=== PATIENT | female | born 1995 | race Caucasian/White ===

== ENCOUNTER 2018-05-27 20:47 | Emergency (ER) | payer SELFPAY ==
[~2018-05-27] VITALS: Ht 167.6 cm; Wt 52.2 kg
[2018-05-27] MEDS ORDERED: NKM (21:01)
[2018-05-27 21:21] VITALS: BP 129/77
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
[2018-05-27] MEDS ORDERED: IBUPROFEN600 MG ORAL (21:29)
[2018-05-27 21:50] VITALS: BP 129/77
--- NOTE | 2018-05-28 11:26 | Diagnostic Imaging Report ---
Indication: Neck Pain Findings: 3 views of the cervical spine were obtained. There is no acute fracture identified. Alignment is normal. The open-mouth odontoid view shows an intact dens and good alignment of the lateral masses with respect to the body of C2. There is no soft tissue swelling. Impression: Negative cervical spine examination.
== END 2018-05-27 21:50 | disposition home or self-care (01) ==
LOC: EMR 21:44
DX: S16.1XXA Strain of muscle, fascia and tendon at neck level, initial encounter (principal); S50.311A Abrasion of right elbow, initial encounter; V43.62XA Car passenger injured in collision with other type car in traffic accident, initial encounter; Y92.410 Unspecified street and highway as the place of occurrence of the external cause; R51 Headache; R07.9 Chest pain, unspecified; M25.551 Pain in right hip; M79.604 Pain in right leg; M79.632 Pain in left forearm
CPT/HCPCS: 72040; 99283